=== PATIENT | female | born 1990 | race Caucasian/White ===

== ENCOUNTER 2017-05-23 12:44 | Emergency (ER) | payer SELFPAY ==
--- NOTE | 2017-05-23 13:56 | DIAGNOSTIC IMAGING REPORT ---
PROCEDURE: XR CHEST 1 VIEW INDICATION: CHEST PAIN TECHNIQUE: Single view chest. 1319 hours. COMPARISON: None. FINDINGS: The cardiomediastinal contour and central vasculature are normal. The lungs are clear without focal consolidation, pleural effusion or pneumothorax. The osseous structures are intact. IMPRESSION: 1. No evidence of acute cardiopulmonary disease.
--- NOTE | 2017-05-23 14:16 | ED ORDER SUMMARY ---
..... Patient: SERA COON OrderSheet [facility] VisitID: [id number] [address] [place] [address] 26y, F Registration Date/Time: 05/23/2017 ORDER SHEET Weight: 83.9 kg (stated) Allergies: No Known Drug Allergy GENERAL ORDERS: Dairy Nutrition Consultant (Continuous) (13:00 05/23/2017 DDean R.N. per protocol) (13:00 DDean R.N.) Chest 1V Urgent (13:00 05/23/2017 DDean R.N. per protocol) (Ack 13:02 PWeiler ER Tech1) (13:16 LNations ER Tech1) Cardiac Panel Stat (13:00 05/23/2017 DDean R.N. per protocol) (Ack 13:02 PWeiler ER Tech1) (14:01 DDean R.N.) Pulse oximeter (13:00 05/23/2017 DDean R.N. per protocol) (13:00 DDean R.N.) EKG - ER Stat (13:00 05/23/2017 DDean R.N. per protocol) (Ack 13:01 PWeiler ER Tech1) (13:01 PWeiler ER Tech1) MEDICATION ORDERS: IV FLUIDS: IV Saline Lock (13:00 05/23/2017 DDean R.N. per protocol) (13:01 DDean R.N.) ORDER SHEET NOTES: [Electronically signed by Araceli Saeed R.N. (14:35 05/23/2017)] [Electronically signed by Anel Hackett P.A.-C (14:44 05/23/2017)] [Electronically locked/signed by Araceli Saeed R.N. (14:35 05/23/2017)]
--- NOTE | 2017-05-23 14:16 | ED NURSING NOTES ---
Clinical Report - Nurses [facility] [address] [place] [address] 05/23/2017 12:47 Patient: SERA COON TRIAGE Triage time 1250. Acuity: LEVEL 3. Chief Complaint: CHEST PAIN and (pt in c/o epigastric pain and bilateral shoulder pain onset10:30am. pt had gall bladder surgery 2 days ago). 12:50. ( last food 10am (crackers and banana), last liquids 4 o). --12:56 Araceli Saeed R.N. 12:50 05/23/17. BP: 120/61. HR: 75. RR: 18. O2 saturation: 100%. Temp: 98.9 F. Pain level now: 04/06. --12:56 Araceli Saeed R.N. Weight: 83.9 kg stated. Height/Length: 60 inches Per Patient. BMI: 36.1. --12:51 Araceli Saeed R.N. Medications None. Oxycodone-Acetaminophen ER Oral 1 tab at 10am (post op). --12:52 Araceli Saeed R.N. Stool softener 1 tab this am . --12:53 Araceli Saeed R.N. Allergies No Known Drug Allergy. --12:52 Araceli Saeed R.N. History Arrived by private vehicle. Historian: patient. Accompanied by spouse. Onset. (10am today). She has had difficulty breathing and nausea. No vomiting, fever or cough. PAST MEDICAL HX: Negative. Last normal menstrual period- 05/13. SURGERY HX: Cholecystectomy. Dental surgery. SOCIAL HX: Never smoker. Occasional alcohol use. No drug use. --12:56 Araceli Saeed R.N. Interventions ID band on patient. To treatment room. --12:56 Araceli Saeed R.N. PHYSICAL ASSESSMENT 12:50. To room via wheelchair. Patient gowned. GENERAL / NEURO / PSYCH: Alert. Oriented X 4. Appears in pain and anxious. RESPIRATORY: Respirations not labored. Chest wall tenderness (upper epigastric area, and into bilateral shoulders). CVS: Pulses within normal limits. GI / : Abdomen soft. SKIN: Skin is warm and dry. --12:58 Araceli Saeed R.N. NURSING PROGRESS NOTES 12:50. Oxygen administered. telemetry monitor placed on patient; (NSR). Patient gowned. Head of bed elevated. Reassurance given. Patient identifiers checked. Call light placed in reach. Side rails up. Bed placed in lowest position. Patient ready for evaluation- chart flagged. --12:56 Araceli Saeed R.N. 12:56. EKG time: (1256). EKG was ordered, performed by farhan saunedrs and shown to the ED physician. done by ALBERT Sullivan. --12:57 Araceli Saeed R.N. 12:57 05/23/2017 Site #1 started via IV in the right hand with an 20g angiocath, with aseptic technique; one attempt. Blood drawn. Labeled in the presence of the patient. Saline lock flushed with saline (done by LANRE Snow, only able to get 5cc blood back,). --12:59 Araceli Saeed R.N. 12:57 IV site in, some blood to lab, but additional draw will need to be done. --13:01 Araceli Saeed R.N. 13:22 05/23/17. ( ERMD on phone with Surgeon). --13:22 Araceli Saeed R.N. late entry -13:07 lab here for blood draw. --13:24 Araceli Saeed R.N. 13:22 05/23/17. BP: 104/66. HR: 78. RR: 18. O2 saturation: 99%. Temp: deferred. Pain level now: 04/06. --13:25 Araceli Saeed R.N. 14:00 05/23/17. BP: 101/70. HR: 68. RR: 16. O2 saturation: 100%. Temp: deferred. Pain level now: 10. Additional comments: resting quielty, family at bedside. pt states she hurts whenever she moves. --14:04 Araceli Saeed R.N. 14:25 05/23/2017 Site #1 removed upon discharge. Bandaid applied. --14:33 Araceli Saeed R.N. 14:25 05/23/2017 IV Saline Lock Drip IV Discontinued: upon discharge. Total amount infused: 0 mL. IV patency established. IV site checked: no pain, redness, or swelling. IV flushed thoroughly. --14:34 Araceli Saeed R.N. DISPOSITION / DISCHARGE 14:25. Condition at departure: stable. No learning barriers present. Reviewed medication(s) (cont with post op meds). Patient verbalized understanding. Written instructions provided in Chinese. The patient was discharged home and accompanied by spouse. She left the Emergency Department ambulatory and via private vehicle. Spouse driving. --14:33 Araceli Saeed R.N. 14:25 05/23/17. BP: 101/67. HR: 78. RR: 17. O2 saturation: 98%. Temp: deferred. Pain level now: 03/07. --14:33 Araceli Saeed R.N. Locked/Released at 05/23/2017 14:35 by Araceli Saeed R.N.
--- NOTE | 2017-05-23 14:16 | ED ORDER SUMMARY ---
..... Patient: SERA COON OrderSheet [facility] VisitID: [id number] [address] [place] [address] 26y, F Registration Date/Time: 05/23/2017 ORDER SHEET Weight: 83.9 kg (stated) Allergies: No Known Drug Allergy GENERAL ORDERS: Calcine Furnace Loader (Continuous) (13:00 05/23/2017 DDean R.N. per protocol) (13:00 DDean R.N.) Chest 1V Urgent (13:00 05/23/2017 DDean R.N. per protocol) (Ack 13:02 PWeiler ER Tech1) (13:16 LNations ER Tech1) Cardiac Panel Stat (13:00 05/23/2017 DDean R.N. per protocol) (Ack 13:02 PWeiler ER Tech1) (14:01 DDean R.N.) Pulse oximeter (13:00 05/23/2017 DDean R.N. per protocol) (13:00 DDean R.N.) EKG - ER Stat (13:00 05/23/2017 DDean R.N. per protocol) (Ack 13:01 PWeiler ER Tech1) (13:01 PWeiler ER Tech1) MEDICATION ORDERS: IV FLUIDS: IV Saline Lock (13:00 05/23/2017 DDean R.N. per protocol) (13:01 DDean R.N.) ORDER SHEET NOTES: [Electronically signed by Araceli Saeed R.N. (14:35 05/23/2017)] [Electronically signed by Anel Hackett P.A.-C (14:44 05/23/2017)] [Electronically locked/signed by Araceli Saeed R.N. (14:35 05/23/2017)]
--- NOTE | 2017-05-23 14:16 | ED NURSING NOTES ---
Clinical Report - Nurses [facility] [address] [place] [address] 05/23/2017 12:47 Patient: SERA COON TRIAGE Triage time 1250. Acuity: LEVEL 3. Chief Complaint: CHEST PAIN and (pt in c/o epigastric pain and bilateral shoulder pain onset10:30am. pt had gall bladder surgery 2 days ago). 12:50. ( last food 10am (crackers and banana), last liquids 4 o). --12:56 Araceli Saeed R.N. 12:50 05/23/17. BP: 120/61. HR: 75. RR: 18. O2 saturation: 100%. Temp: 98.9 F. Pain level now: 04/06. --12:56 Araceli Saeed R.N. Weight: 83.9 kg stated. Height/Length: 60 inches Per Patient. BMI: 36.1. --12:51 Araceli Saeed R.N. Medications None. Oxycodone-Acetaminophen ER Oral 1 tab at 10am (post op). --12:52 Araceli Saeed R.N. Stool softener 1 tab this am . --12:53 Araceli Saeed R.N. Allergies No Known Drug Allergy. --12:52 Araceli Saeed R.N. History Arrived by private vehicle. Historian: patient. Accompanied by spouse. Onset. (10am today). She has had difficulty breathing and nausea. No vomiting, fever or cough. PAST MEDICAL HX: Negative. Last normal menstrual period- 05/13. SURGERY HX: Cholecystectomy. Dental surgery. SOCIAL HX: Never smoker. Occasional alcohol use. No drug use. --12:56 Araceli Saeed R.N. Interventions ID band on patient. To treatment room. --12:56 Araceli Saeed R.N. PHYSICAL ASSESSMENT 12:50. To room via wheelchair. Patient gowned. GENERAL / NEURO / PSYCH: Alert. Oriented X 4. Appears in pain and anxious. RESPIRATORY: Respirations not labored. Chest wall tenderness (upper epigastric area, and into bilateral shoulders). CVS: Pulses within normal limits. GI / : Abdomen soft. SKIN: Skin is warm and dry. --12:58 Araceli Saeed R.N. NURSING PROGRESS NOTES 12:50. Oxygen administered. hospital monitor placed on patient; (NSR). Patient gowned. Head of bed elevated. Reassurance given. Patient identifiers checked. Call light placed in reach. Side rails up. Bed placed in lowest position. Patient ready for evaluation- chart flagged. --12:56 Araceli Saeed R.N. 12:56. EKG time: (1256). EKG was ordered, performed by farhan saunders and shown to the ED physician. done by ALBERT Sullivan. --12:57 Araceli Saeed R.N. 12:57 05/23/2017 Site #1 started via IV in the right hand with an 20g angiocath, with aseptic technique; one attempt. Blood drawn. Labeled in the presence of the patient. Saline lock flushed with saline (done by LANRE Snow, only able to get 5cc blood back,). --12:59 Araceli Saeed R.N. 12:57 IV site in, some blood to lab, but additional draw will need to be done. --13:01 Araceli Saeed R.N. 13:22 05/23/17. ( ERMD on phone with Surgeon). --13:22 Araceli Saeed R.N. late entry -13:07 lab here for blood draw. --13:24 Araceli Saeed R.N. 13:22 05/23/17. BP: 104/66. HR: 78. RR: 18. O2 saturation: 99%. Temp: deferred. Pain level now: 04/06. --13:25 Araceli Saeed R.N. 14:00 05/23/17. BP: 101/70. HR: 68. RR: 16. O2 saturation: 100%. Temp: deferred. Pain level now: 10. Additional comments: resting quielty, family at bedside. pt states she hurts whenever she moves. --14:04 Araceli Saeed R.N. 14:25 05/23/2017 Site #1 removed upon discharge. Bandaid applied. --14:33 Araceli Saeed R.N. 14:25 05/23/2017 IV Saline Lock Drip IV Discontinued: upon discharge. Total amount infused: 0 mL. IV patency established. IV site checked: no pain, redness, or swelling. IV flushed thoroughly. --14:34 Araceli Saeed R.N. DISPOSITION / DISCHARGE 14:25. Condition at departure: stable. No learning barriers present. Reviewed medication(s) (cont with post op meds). Patient verbalized understanding. Written instructions provided in Tongan. The patient was discharged home and accompanied by spouse. She left the Emergency Department ambulatory and via private vehicle. Spouse driving. --14:33 Araceli Saeed R.N. 14:25 05/23/17. BP: 101/67. HR: 78. RR: 17. O2 saturation: 98%. Temp: deferred. Pain level now: 03/07. --14:33 Araceli Saeed R.N. Locked/Released at 05/23/2017 14:35 by Araceli Saeed R.N.
--- NOTE | 2017-05-23 14:16 | ED CLINICAL REPORT ---
Clinical Report - Physicians/Mid Levels [facility] [address] [place] [address] 05/23/2017 12:47 Patient: SERA COON Time Seen: 12:56. Arrived- By private vehicle. Historian- patient and family. HISTORY OF PRESENT ILLNESS Chief Complaint: DYSPNEA and shoulder pain/ chest pain. This started today and is still present. The dyspnea is described as mild. No cough, sputum production, fever or sweating episodes. (patient status was scheduled cholecystectomy on the , and has been expressing shoulder pain radiating to her chest today. Reports some shortness of breath. The pain worsens when she moves around. She has also reported some dizziness, with ambulation. Denies history of PE or DVT. Denies any fevers. Patient has had positive flatus. Pt taking oxycodone 5 mg q 6 hours.). REVIEW OF SYSTEMS The patient has not had weight loss. No muscle aches, eye irritation or sinus drainage. All systems otherwise negative, except as recorded above. PAST HISTORY Problems: no known problems. Additional Surgeries: Cholecystectomy. Dental Surgery. Medications: Stool softener 1 tab this am . None. Oxycodone-Acetaminophen ER Oral 1 tab at 10am (post op). Allergies: No Known Drug Allergy. ADDITIONAL NOTES The nursing notes have been reviewed. PHYSICAL EXAM Vital Signs: 05/23/2017 12:50 BP: 120/61. HR: 75. RR: 18. O2 saturation: 100%. Temp: 98.9 F. Pain level now: 5/10. Appearance: Alert. Neck: Normal inspection. CVS: Normal heart rate and rhythm. Heart sounds normal. Rhythm normal. Respiratory: No respiratory distress. Breath sounds normal. No prolonged expiration. Abdomen: Soft. No abdominal tenderness, guarding or rebound tenderness. (5 incicion sites are c/d/i). Back: Normal inspection. Skin: Normal skin color. Neuro: Oriented X 3. LABS, X-RAYS, AND EKG EKG: EKG time: (1256). No acute process. No acute ischemia. Normal EKG. Normal sinus rhythm. Rate: 84. Normal P waves. Normal CORTEZ. Normal QRS complex. Normal axis. Normal ST and T waves, QT and QTc. Prior EKG unavailable. The study has been interpreted contemporaneously by me. The study has been independently viewed by me. The EKG appears to be a good tracing. I agree with and confirm the computer reading of the EKG. Chest X-ray: (IMPRESSION: 1. No evidence of acute cardiopulmonary disease. Electronically Final signed by:Carmen Latham MD 05/23/2017 1:56:58 PM). Laboratory Tests: CBC w Diff: (TAYA: 05/23/2017 13:13) ( MsgRcvd 05/23/2017 13:24) Final results Test Result Flag Units (Reference) WHITE BLOOD COUNT 11.3 K/uL (4.5-11.5) RED BLOOD COUNT 4.21 M/uL (4.00-5.20) HEMOGLOBIN 11.8 L gm/dL (12.0-16.0) HEMATOCRIT 34.6 L % (36.0-46.0) MEAN CELL VOLUME 82 fL (80-100) MEAN CORPUSCULAR HGB 28 pg (26-34) MEAN CORPUSCULAR HGB CONC 34 g/dL (31-37) RED CELL DISTRIBUTION WIDTH 13.9 % (11.6-14.8) PLATELET COUNT 292 K/uL (150-400) NEUTROPHIL % 75.7 H % (50-75) LYMPH % 21.6 L % (25-40) MONO % 2.2 L % (3-14) EOSINOPHIL % 0.3 % (0-4) BASOPHIL % 0.2 % (0-2) CHEM 13 PANEL: (TAYA: 05/23/2017 13:13) ( MsgRcvd 05/23/2017 13:38) Final results Test Result Flag Units (Reference) GLUCOSE 96 mg/dL (70-110) BUN 9 mg/dL (7-18) CREATININE 0.7 mg/dL (0.6-1.3) Estimated GFR >60 mL/min Estimated GFR- >60 mL/min Note: Persistent reduction over 3 months in eGFR<60 mL/min/1.73 m2 defines CKD. Patients with eGFR values>=60 mL/min/1.73 m2 may also have CKD if evidence ofpersistent proteinuria. Additional information may be foundat www.kidney.org. SODIUM 138 mmol/L (136-145) POTASSIUM 3.5 mmol/L (3.5-5.1) CHLORIDE 104 mmol/L (98-107) CARBON DIOXIDE 25 mmol/L (21-32) CALCIUM 8.3 L mg/dL (8.5-10.1) TOTAL PROTEIN 6.6 g/dL (6.4-8.2) ALBUMIN 3.2 L g/dL (3.3-5.0) BILIRUBIN, TOTAL 0.5 mg/dL (0.0-1.0) ALKALINE PHOSPHATASE 70 U/L (46-116) AST (SGOT) 78 H U/L (15-37) ALT (SGPT) 100 H U/L (12-78) CPK 113 U/L (24-260) MAGNESIUM 1.8 mg/dL (1.8-2.4) TROPONIN I <0.05 L ng/mL (0.00-1.5) TROPONIN REFERENCE RANGE:<0.1 NEGATIVE0.1-1.5 INDETERMINANT>1.5 POSITIVE . PROGRESS AND PROCEDURES Course of Care: patient reports her pain worsens with position. She currently does not have any pain. Her saturation has been great here in the emergency department, with no tachycardia/ tachypnea. Patient with no history of PE, dissection risk factor has been surgery, she has no active pain, suspicion for such is low. Discussed concerns with patient, as well as if any symptoms change or worsen to return and have strict precautions for ER return. Patient understands the plan. 05/23/2017 14:25 BP: 101/67. HR: 78. RR: 17. O2 saturation: 98%. Pain level now: 03/07. 05/23/2017 14:00 BP: 101/70. HR: 68. RR: 16. O2 saturation: 100%. Pain level now: 03/07. 05/23/2017 13:22 BP: 104/66. HR: 78. RR: 18. O2 saturation: 99%. Pain level now: 5/10. Patient is stable. Symptoms better. Patient/family counseled. Disposition: Discharged. Condition: good. CLINICAL IMPRESSION Post-operative complication from gastrointestinal surgery. INSTRUCTIONS (If any new pain develops, fevers/ cough. NEW Pain return to ER). Warnings: Further evaluation is necessary. Follow-up: Follow up with your doctor as needed. (Electronically signed by Anel Hackett P.A.-C 05/23/2017 14:44)
--- NOTE | 2017-05-23 14:44 | ED DISCHARGE INSTRUCTIONS ---
Patient: SERA COON General Instructions [facility] VisitID: [id number] [address] [place] [address] 26y, F Registration Date/Time: 05/23/2017 Post-operative complication from gastrointestinal surgery. INSTRUCTIONS (If any new pain develops, fevers/ cough. NEW Pain return to ER). Warnings: Further evaluation is necessary. Follow-up: Follow up with your doctor as needed. (Electronically signed by Anel Hackett P.A.-C 05/23/2017 14:44)
--- NOTE | 2017-05-23 14:44 | ED MED RECONCILIATION SUMMARY ---
Patient: SERA COON Medication Reconciliation Report [facility] VisitID: [id number] [address] [place] [address] 26y, F Registration Date/Time: 05/23/2017 Weight: 83.9 kg Height/Length: 60 in. BMI: 36.1 ALLERGIES: No Known Drug Allergy The patient's Home Medications are listed below: THE FOLLOWING MEDICATIONS NEED TO BE RECONCILED: Oxycodone-Acetaminophen ER Oral 1 tab at 10am, post op Stool softener 1 tab this am The source(s) of the original Home Medication information: Not obtained. The following Medications were given to the patient in the Emergency Department: None. The following Medications were prescribed to the patient: None.
--- NOTE | 2017-05-23 14:44 | ED DISCHARGE INSTRUCTIONS ---
Patient: SERA COON General Instructions [facility] VisitID: [id number] [address] [place] [address] 26y, F Registration Date/Time: 05/23/2017 Post-operative complication from gastrointestinal surgery. INSTRUCTIONS (If any new pain develops, fevers/ cough. NEW Pain return to ER). Warnings: Further evaluation is necessary. Follow-up: Follow up with your doctor as needed. (Electronically signed by Anel Hackett P.A.-C 05/23/2017 14:44)
--- NOTE | 2017-05-23 14:44 | ED MED RECONCILIATION SUMMARY ---
Patient: SERA COON Medication Reconciliation Report [facility] VisitID: [id number] [address] [place] [address] 26y, F Registration Date/Time: 05/23/2017 Weight: 83.9 kg Height/Length: 60 in. BMI: 36.1 ALLERGIES: No Known Drug Allergy The patient's Home Medications are listed below: THE FOLLOWING MEDICATIONS NEED TO BE RECONCILED: Oxycodone-Acetaminophen ER Oral 1 tab at 10am, post op Stool softener 1 tab this am The source(s) of the original Home Medication information: Not obtained. The following Medications were given to the patient in the Emergency Department: None. The following Medications were prescribed to the patient: None.
--- NOTE | 2017-05-23 14:44 | ED MAR SUMMARY ---
..... Medication Administration Record [facility] [address], [place] [id number] Patient: SERA COON Visit ID: [id number] 26y, F Weight: 83.9 kg Height/Length: 60 in BMI: 36.1 ALLERGIES: No Known Drug Allergy
--- NOTE | 2017-05-23 14:44 | ED MAR SUMMARY ---
..... Medication Administration Record [facility] [address], [place] [id number] Patient: SERA COON Visit ID: [id number] 26y, F Weight: 83.9 kg Height/Length: 60 in BMI: 36.1 ALLERGIES: No Known Drug Allergy
== END 2017-05-23 14:25 | disposition home or self-care (01) ==
LOC: ED SRH 12:44
DX: K91.89 Other postprocedural complications and disorders of digestive system (principal); R07.9 Chest pain, unspecified; R06.00 Dyspnea, unspecified
CPT/HCPCS: 90074; 90100; 90616; 92610; 92720; 95059